=== PATIENT | female | born 1935 | race Caucasian/White ===

== ENCOUNTER 2024-07-24 19:38 | Emergency (ER) | payer MEDICARE, SELFPAY ==
[2024-07-24 19:39] VITALS: BP 127/82; PULSE 104; RESP 18; TEMP 36.7; O2SAT 98; BMI 21.0
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
--- NOTE | 2024-07-24 20:26 | ECG_ITS ---
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 Measurements Intervals [place] Rate: 90 P: 84 DC: 165 QRS: 72 QRSD: 116 T: 56 QT: 368 QTc: 452 Interpretive Statements SINUS RHYTHM INDETERMINATE AXIS RIGHT BUNDLE BRANCH BLOCK [120+ ms QRS DURATION, UPRIGHT V1, 40+ ms S IN I/aVL/V4/V5/V6] No previous ECG available for comparison Electronically Signed On 07-24-2024 22:50:11 CDT by Avelina White M.D. [id number]
[2024-07-24 20:35] LABS: Basophils # 0.1 10^3/uL (0.0-0.1); Basophils % 1.1 %; Eosinophils % 0.5 %; Hematocrit 41.4 % (36-47); Lymphocytes # 2.1 10^3/uL (0.8-4.8); Lymphocytes % 36.4 %; Mean Corpuscular HGB Conc 31.9 g/dL (30-55); Mean Corpuscular Hemoglobin 31.3 pg (27-33); Mean Corpuscular Volume 98.1 fl (85-98); Mean Platelet Volume 9.2 fL (7.4-10.4); Monocytes # 0.6 10^3/uL (0.2-0.9); Monocytes % 10.8 %; Neutrophils # 2.89 10^3/uL (1.8-7.7); Nucleated Red Blood Cells % 0 %; Platelet Count 233 10^3/cmm (157-399); Red Blood Count 4.22 10^6/uL (3.85-5.65); Red Cell Distribution Width 12.6 % (12.1-15.1); White Blood Count 5.66 10^3/uL (3.29-11.43)
[2024-07-24 21:03] LABS: Alanine Aminotransferase 14 U/L (0-33); Albumin Level 4.3 g/dL (3.5-5.2); Alcohol Level 14 mg/dL (0-10); Alkaline Phosphatase 69 U/L (35-105); Anion Gap 19.6 (5-19); Aspartate Amino Transferase 19 U/L (0-32); Blood Urea Nitrogen 14 mg/dL (8-23); Carbon Dioxide 21 mmol/L (22-29); Chloride 107 mmol/L (98-107); Creatinine Clr Calc Pharmacy 38.3265; Globulin 2.7 g/dL (1.3-4.6); Glucose 117 mg/dL (65-115); Osmolality Calculated 298 mOsm/kg (285-295); Potassium 4.6 mmol/L (3.5-5.1); Sodium 143 mmol/L (136-145); Total Bilirubin 0.3 mg/dL (0.15-1.2)
[2024-07-24 21:06] LABS: Acetaminophen < 5.0 ug/mL (10-30); Salicylate < 0.3 mg/dL (3-10)
[2024-07-24 21:15] LABS: Bacteria Urine None Seen /hpf; Hyaline Casts Urine 1.65 /lpf; RBC Urine 0-2 /hpf (0-2); Squamous Epithelial Cell Urine 0-5 /hpf (0-5); WBC Urine 0-5 /hpf (0-5)
[2024-07-24 21:17] LABS: Amphetamines Screen Urine Negative (Negative); Barbiturates Screen Urine Negative (Negative); Benzodiazepines Screen Urine Negative (Negative); Cocaine Screen Urine Negative (Negative); Opiate Screen Urine Negative (Negative); PCP Screen Urine Negative (Negative); THC Screen Urine Negative (Negative)
[2024-07-24 21:27] LABS: Add Urine Microscopic? YES; Bilirubin Urine Negative (Negative); Blood Urine Negative (Negative); Glucose Urine UA Negative (Normal); Ketones Urine Negative (Negative); Leukocyte Esterase Urine Negative (Negative); Nitrate Urine Negative (Negative); Protein Urine Negative (Negative); Specific Gravity, Urine 1.011 (1.005-1.030); Urine Appearance Clear (CLEAR); Urine Color Yellow (Yellow); Urobilinogen Urine 0.2 mg/dL (Negative)
[2024-07-24 21:46] LABS: Covid PCR NEGATIVE (Negative); Influenza A NEGATIVE (Negative); Influenza B NEGATIVE (Negative); Respiratory Syncytial Virus Ce NEGATIVE (Negative)
[2024-07-24] MEDS: LORazepam 2 mg/mL INJ 1 mL 1 MG IM (21:47)
[2024-07-24 21:49] VITALS: BP 172/99; PULSE 119; O2SAT 98
--- NOTE | 2024-07-24 22:52 | CTR_ITS ---
PROCEDURE INFORMATION: Exam: CT Head Without Contrast Exam date and time: 07/24/2024 10:56 PM Age: 89 years old Clinical indication: Injury or trauma; Fall; Blunt trauma (contusions or hematomas); Consciousness not specified; Additional info: Fall/struck head TECHNIQUE: Imaging protocol: Computed tomography of the head without contrast. Radiation optimization: All CT scans at this facility use at least one of these dose optimization techniques: automated exposure control; mA and/or kV adjustment per patient size (includes targeted exams where dose is matched to clinical indication); or iterative reconstruction. COMPARISON: No relevant prior studies available. 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 Diffuse parenchymal volume loss. No acute infarct. No intracranial bleed. No mass effect. Cerebral ventricles: No ventriculomegaly. Pituitary gland and sella: Partially empty sella. Paranasal sinuses: Visualized sinuses are unremarkable. No fluid levels. Mastoid air cells: Visualized mastoid air cells are well aerated. Bones: Unremarkable. No acute fracture. Soft tissues: Unremarkable. CT/CT head wo con* [id number] IMPRESSION: No acute intracranial posttraumatic changes.
--- NOTE | 2024-07-24 23:08 | PC.NURSE ---
tech reported pt fall to this RN. according to certified registered nurse anesthetistvicky Guajardo, pt was walking in room and bumped head against wall. tech into room at this time. pt began to slide down wall. tech eased patient to the floor. pt c/o minor head pain. no other complaints. when asking pt about head pain she more concerned about pulse oximeter clinical operations manager finger blinking. provider notified immediately. pt to CT and moved into room with PSA. provider into room at time of return from CT.
[2024-07-24] MEDS: OLANZapine 10 mg VIAL 5 MG IM (23:37)
[2024-07-25] VITALS: BP 135/84; PULSE 102; O2SAT 95
[2024-07-25] MEDS: OLANZapine 10 mg VIAL 5 MG IM (00:46)
[2024-07-25] MEDS: LORazepam 2 mg/mL INJ 1 mL 1 MG IVP (00:47)
[2024-07-25 02:00] VITALS: PULSE 105; O2SAT 97
--- NOTE | 2024-07-25 02:02 | XRR_ITS ---
PROCEDURE INFORMATION: Exam: XR Chest Exam date and time: 07/25/2024 2:13 AM Age: 89 years old Clinical indication: Other: Psychosis, AMS TECHNIQUE: Imaging protocol: Radiologic exam of the chest. Views: 1 view. COMPARISON: No relevant prior studies available. FINDINGS: Airway: Increased mineralization of the trachea. Lungs: Hyperinflated lung space. Diffuse interstitial scarring. Pleural spaces: Unremarkable. No pleural effusion. No pneumothorax. Heart/Mediastinum: Unremarkable. No cardiomegaly. Vasculature: Atherosclerotic disease of the aortic arch. Bones/joints: Diffuse degenerative change of the visualized osseous structures. XR/XR chest 1V portable [id number] IMPRESSION: No acute cardiopulmonary findings with likely COPD changes.
[2024-07-25 05:00] VITALS: BP 160/95; PULSE 92; O2SAT 95
--- NOTE | 2024-07-25 06:27 | PC.NURSE ---
This nurse attempted to call patient report at [place], declined report and instructed to call back after shift change.
[2024-07-25 06:29] VITALS: BP 111/58; PULSE 98; O2SAT 93
--- NOTE | 2024-07-25 06:42 | PC.NURSE ---
Attempted to read 96 hour hold rights to patient. Patient is unable to comprehend at this time. Patient is only alert to self at this time. Copy of rights left at the bedside.
--- NOTE | 2024-07-25 08:51 | PC.PHAR ---
Spoke to Family and they stated Patient should be taking medication but will not take it and they can't make her .
[2024-07-25] MEDS: ziprasidone 20 mg/mL SDV 10 MG IM (09:38)
[2024-07-25] MEDS: water for injection-sterile 10 ML 999 ML (09:38)
[2024-07-25 09:42] VITALS: BP 111/78; PULSE 98; O2SAT 93
== END 2024-07-25 09:43 ==
PROVIDERS: Emergency Provider Physician Assistant; PCP Nurse Practitioner Family
DX: F03.C11 Unspecified dementia, severe, with agitation (principal); R46.89 Other symptoms and signs involving appearance and behavior
CPT/HCPCS: 0241U; 36415; 70450; 71045; 80053; 80306; 80307; 81001; 84443; 85025; 93005; 96372; 96374; 99285; J2060; J3486; J3490